=== PATIENT | female | born 1980 | race African-American/Black ===

== ENCOUNTER → 2022-01-08 | Day surgery (SDC) | payer OTHER ==
[~2022-01-08] VITALS: Ht 160 cm; Wt 87.6 kg
[~2022-01-08] MED LIST: BACITRACIN TOP; IBUPROFEN800 MG PO; KEFLEX500 MG PO; LOSARTAN POTASS50 MG PO; PERCOCET 5-3251 EACH PO; ZOFRAN8 MG PO
[2022-01-08 08:29] LABS: HCG (URINE) SCREEN NEGATIVE (NEGATIVE)
[2022-01-08 08:56] LABS: HCT 35.2 % (37.0-47.0); HGB 12.2 g/dl (12.5-16.0); MCH 30.2 pg (25.0-31.0); MCHC 34.7 g/dL (32.0-36.0); MCV 87.1 fL (78.0-100.0); MPV 9.4 fL (6.0-9.5); RBC 4.04 M/uL (4.20-5.40); RDW 12.5 % (11.5-14.0); WBC 3.7 K/uL (4.0-10.5)
[2022-01-08 09:13] LABS: BUN/CREAT RATIO (CALC) 13.1 RATIO; CREATININE 0.61 mg/dL (0.51-0.95); POTASSIUM 3.4 mmol/L (3.5-5.1)
== END | disposition home or self-care (01) ==
LOC: FAS 08:01
PROVIDERS: Anesthesiology; Obstetrics & Gynecology
DX: N87.1 Moderate cervical dysplasia (principal); N87.0 Mild cervical dysplasia; I10 Essential (primary) hypertension; E66.9 Obesity, unspecified; Z90.722 Acquired absence of ovaries, bilateral; Z98.51 Tubal ligation status; Z72.89 Other problems related to lifestyle
CPT/HCPCS: 36415; 80048; 84703; 86850; 86900; 86901; 93005; J1100; J1885; J2250; J2405; J2704; J3010; J7120

== ENCOUNTER 2022-04-21 18:31 | Emergency (ER) | payer OTHER | END 2022-04-21 20:15 | disposition left against medical advice (07) | LOC: FER 18:31 | DX: S96.912A Strain of unspecified muscle and tendon at ankle and foot level, left foot, initial encounter (principal); Z53.29 Procedure and treatment not carried out because of patient's decision for other reasons; X50.1XXA Overexertion from prolonged static or awkward postures, initial encounter; Y93.39 Activity, other involving climbing, rappelling and jumping off; Y92.095 Swimming-pool of other non-institutional residence as the place of occurrence of the external cause | CPT/HCPCS: 73610; 73630 ==